=== PATIENT | female | born 1985 | race Caucasian/White ===

== ENCOUNTER 2016-07-29 01:13 | Outpatient (CLI) | payer OTHER | END 2016-07-29 02:00 | disposition home or self-care (01) | LOC: M LDO 01:13 | PROVIDERS: ATTEND Advanced Practice Midwife | DX: O47.1 False labor at or after 37 completed weeks of gestation (principal); Z3A.00 Weeks of gestation of pregnancy not specified ==

== ENCOUNTER 2016-08-05 02:11 | Inpatient (IN) | payer OTHER ==
[~2016-08-05] VITALS: Ht 175.3 cm; Wt 80.0 kg
[2016-08-05 02:18] VITALS: BP 111/73
[2016-08-05] MEDS ORDERED: PRENTAB9 PO (02:26)
[2016-08-05] MEDS ORDERED: AMPICILLIN SOD 2 GM in D5W MINI-BAG PLUS 100 ML IV STA (04:31)
[2016-08-05] MEDS ORDERED: LACTATED RINGER'S 1000 ML IV STA (04:31)
[2016-08-05] MEDS ORDERED: LR 1,000 ML IV SCH (04:31)
[2016-08-05 05:11] LABS: MEAN CORPUSCULAR HGB CONC 33.8 g/dl (32.0-36.5); MEAN CORPUSCULAR VOLUME 91.6 fl (80.0-96.0); RED CELL DISTRIBUTION WIDTH 14.8 % (11.5-14.5); WHITE BLOOD COUNT 7.9 K/mm3 (4.0-10.0)
--- NOTE | 2016-08-05 05:20 | HPEPDOC ---
Obstetrical History & Physical General Date of Admission Aug 05, 2016 at 04:42 History of Present Illness Sandra is a 31yo with SIUP at 40w6d presenting with regular painful ctx. No lof. No vb. Feels good movement. Chief Complaint: Contractions, term Information Provided By: Patient Care Care: Good Care Dating Final EDC: Jul 30, 2016 Final EDC by: LMP, 1st trimester (US) LMP: Oct 19, 2015 Antepartum Course Diagnos(e)s scleroderma stable on no meds- PIH labs wnl, Gestational thrombocytopenia (plt 120's) Height (inches): 69 Pre- weight (lbs.): 138 Admission Weight (lbs.): 179 Change in Weight (lbs.): 41 Past Medical History Past Obstetrical History #1: Past Obstetrical History: Multigravida Date of Delivery: Jan 04, 2010 Gestation: 41 Type of Delivery: Spontaneous Vaginal Del. Sex of Infant: Male Weight of (grams): 3800 Complications: No Past Obstetrical History #2: Past Obstetrical History: Multigravida Date of Delivery: Jun 06, 2012 Gestation: 41 Type of Delivery: Spontaneous Vaginal Del. 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 Centromere ab positive. SSA/SSB ab neg. No pulmonary, cardiac or renal involvement MFM consult , Baseline PIH labs wnl. Growth scans q4wk at 28wk for risk of IUGR. Pulmonology consult , normal PFTs, no evidence of pulmonary involvement Echo with no evidence of PAH and EF 60% Oct 2015 2)Migraines w/aura, treates with tylenol and caffeine. Surgical History: Eunice Teeth Family History Significant Family History: No pertinent family hx Social History Marital Status: Family situation: Spouse/partner home Psychosocial History: No pertinent psych hx * Smoker: non-smoker Alcohol: denies Drugs: denies Imunizations Tdap status: current Influenza Status: current Allergies Coded Allergies: Peanut (Verified Allergy, Unknown, 08/05/16) Medications Scheduled Multivitamins/ ( 27-0.8 mg) 1 Tab Tab 1 TAB PO DAILY Physical Examination Physical Examination GENERAL: Alert and oriented times three. BREAST: . ABDOMEN: Gravid and non-tender to touch. FETUS: Is vertex (VTX) by sterile vaginal examination (SVE) HEART RATE: Regular rate and rhythm. LUNGS: Clear to auscultation (CTA). EXTREMITIES: trace edema of BLE Laboratory Data Urine Culture: Other (GBS bacteruria) Pertinent Laboratoy Data Blood Type: O+ RBC Antibody Screen: Negative HIV: Negative Hepatitis B: Negative Hepatitis C: Unknown Rapid Plasma Reagin: Nonreactive Rubella: Immune Varicella: Immune Chlamydia/Gonorrhea: Negative Group B Streptococcus: Positive Cystic Fibrosis: Negative Glucose Tolerance Test: 133 Anatomy Ultrasound Ultrasound Date: Apr 29, 2016 Placenta Location: Anterior Normal Anatomy: Yes Placenta Previa: No Steroid Therapy Steroid Therapy: No Vaginal Examination Dilation: 5 cm Effacement: 80+% Station: -2 Cervical Consistency: Soft Cervical Position: Middle Presentation: Cephalic presentation Assessment Heart Rate (FHR): 120 Variability: Moderate Accelerations: Positive Decelerations: None Tocometer Contractions: Yes Frequency: every 3-7 min. Duration: greater than 60 seconds Strength: palpated as moderate Assessment/Plan Assessment Sandra is a 31yo with SIUP at 40w6d with active labor diagnosed by cervical change from 3/90/-2 to 5/90/-2. Cat I FHRT. GBS positive urine. Cephalic by SCE. PMhx significant for scleroderma with no pulmonary, cardiac or renal involvement and stable on no medications. Also migraines with aura. Gestational thrombocytopenia (plt 120's), will re-eval today. Patient does not desire epidural for labor. Plan Admit and orient. Counseled and consented for Diet: clear liquids Group B Streptococcus (GBS) positive, Amp 2/1 Labs and intravenous (IV) per unit protocol. Lactated Ringers (LR): Bolus 500 mL, then at 125 mL/hr. Anticipate normal spontaneous delivery () Dr. Anjelica Bishop MD TroyANJELICA Herrera MD Aug 05, 2016 05:20
[2016-08-05 06:25] VITALS: BP 119/80
[2016-08-05] MEDS ORDERED: AMPICILLIN SOD 1 GM in D5W MINI-BAG PLUS 50 ML IV SCH (09:00)
[2016-08-05] MEDS: DOCUSATE SODIUM 100 MG CAP PO SCH ×2 (09:00→21:00)
[2016-08-05] MEDS: PRENATAL VITAMIN TAB PO SCH (09:00)
--- NOTE | 2016-08-05 09:44 | IPNPDOC ---
Text Note Date of Service The patient was seen on 08/05/16 at 09:43. NOTE assumed care 0730, SBAR from Dr Bishop NST Cat1 Cx 8-9/100/0/well applied Wants an epidural now Plan for Epidural then AROM, RN to call once stable post-epidural. Sessions VSTomasz, I+O VSTomasz I+O Laboratory Tests 08/05/16 05:00 Red Blood Count 3.64 L, Mean Corpuscular Volume 91.6, Mean Corpuscular Hemoglobin 31.0, Mean Corpuscular Hemoglobin Concent 33.8, Red Cell Distribution Width 14.8 H Vital Signs Date Time Temp Pulse Resp B/P Pulse Ox O2 Delivery O2 Flow Rate FiO2 08/05/16 06:25 97.6 67 18 119/80 SESSIONS,AMADOU Calderon MD Aug 05, 2016 09:44
[2016-08-05] MEDS ORDERED: OXYTOCIN 30 UNITS IN 0.9% NaCl 500ML IV BAG (J2590) As Ordered ONE (10:10)
[2016-08-05] MEDS ORDERED: LIDOCAINE 1% MDV INJ 50 ML VIAL As Ordered ONE (10:42)
[2016-08-05] MEDS ORDERED: OXYTOCIN DRIP 30 UNITS in APPROPRIATE DILUENT 1 EA IV SCH (11:04)
[2016-08-05] MEDS ORDERED: RHOGAM 300 MCG (1500 IU) INJ (J2790) IM SCH (11:15)
[2016-08-05] MEDS ORDERED: LIDOCAINE 1% MDV INJ 50 ML VIAL INFIL ONE (11:15)
[2016-08-05] MEDS ORDERED: ACETAMINOPHEN TAB 650MG DOSE (2X325MG) PO PRN (11:15)
[2016-08-05] MEDS ORDERED: METOCLOPRAMIDE INJ 10MG/2ML VIAL (J2765) IV PRN (11:15)
[2016-08-05] MEDS ORDERED: DIBUCAINE 1% OINTMENT 30GM TOP PRN (11:15)
[2016-08-05] MEDS ORDERED: IBUPROFEN 800 MG TAB PO PRN (11:15)
[2016-08-05] MEDS ORDERED: MEASLES,MUMPS,RUBELLA VACCINE INJ (MMR-II) (90707) SC SCH (11:15)
--- NOTE | 2016-08-05 11:15 | DNPDOC ---
Delivery Note Delivery Note DATE OF DELIVERY: Aug 05, 2016 at 04:42 PREDELIVERY DIAGNOSIS: Labor POST DELIVERY DIAGNOSIS: Delivered. PROCEDURE: Spontaneous vaginal BANK RUNNER: , admitting physician Dr Bishop ANESTHESIA: none ESTIMATED BLOOD LOSS: 200 FINDINGS: 9 pound 5ounce male , Score 8/9, True umbilical cord knot DELIVERY SUMMARY: Admitted in active labor and progressed quickly with no augmentation or epidural to C/C and pushed involuntarily, no delay of the vtx or ant/post shoulders. MRAY. To abdomen with good tone and cry. Cord C/C by FOB. Cord blood. True knot noted, not tight. 1st degr perineal lac noted. placenta intact with slight traction and massage. Intact. Lac repaired with 3- [address]-1. Good cosmesis/hemostasis. Renata MOYER,AMADOU Calderon MD Aug 05, 2016 11:15
[2016-08-05 13:33] VITALS: BP 110/66
[2016-08-05 18:03] VITALS: BP 110/59
[2016-08-06 06:20] VITALS: BP 96/55
--- NOTE | 2016-08-06 07:55 | DS.PDOC ---
Discharge Summary General Date of Admission Aug 05, 2016 at 04:42 Date of Discharge [id number] Discharge Summary COMPLICATIONS/CHIEF COMPLAINT: Active labor at term ADMISSION DIAGNOSES: 1. Active labor DISCHARGE DIAGNOSES: 1. with a true knot in the umbilical cord HOSPITAL COURSE: Patient was admitted in labor and had an uncomplicated delivery other than a first degree perineal laceration, repaired successfully. She had an uncomplicated course thereafter. DISCHARGE MEDICATIONS: Motrin, Tylenol, Lanolin, Colace, Dibucaine PHYSICAL EXAMINATION ON DISCHARGE: see prog note from this AM VITAL SIGNS: Please see below. DISCHARGE CONDITION: stable DISPOSITION: to home ACTIVITY: Nothing in the vagina for 6-8 weeks. Regular diet. DISCHARGE PLAN AND INSTRUCTIONS: follow up at 6 week visit Sessions Vital Signs/I&Os Vital Signs Date Time Temp Pulse Resp B/P Pulse Ox O2 Delivery O2 Flow Rate FiO2 08/06/16 06:20 98.4 69 6 96/55 I&O- Last 24 Hours up to 6 AM 08/06/16 06:00 Output Total 250 ml Balance -250 ml Medications Scheduled Multivitamins/ ( 27-0.8 mg) 1 Tab Tab 1 TAB PO DAILY Allergies Coded Allergies: Peanut (Verified Allergy, Unknown, 08/05/16) SESSIONS,AMADOU Calderon MD Aug 06, 2016 07:55
--- NOTE | 2016-08-06 07:57 | IPNPDOC ---
Text Note Date of Service The patient was seen on 08/06/16 at 07:56. NOTE PPD1 prog note Pt states feeling well, minimal pain. VB slowing. Baby feeding OK. No CP/LP/ SOB. Voiding and ambulatory. VSSAF Fundus at U-2, firm LE no CCE a/p: Doing well. Discharge this AM, to boarding if baby not released. Sessions VS,Tomasz, I+O VSTomasz I+O Vital Signs Date Time Temp Pulse Resp B/P Pulse Ox O2 Delivery O2 Flow Rate FiO2 08/06/16 06:20 98.4 69 6 96/55 I&O- Last 24 Hours up to 6 AM 08/06/16 06:00 Output Total 250 ml Balance -250 ml SESSIONS,AMADOU Calderon MD Aug 06, 2016 07:57
--- NOTE | 2016-08-06 08:00 | IPN ---
DATE: 08/06/2016 This mother and requested circumcision of their male . After discussing risks and benefits of circumcision, the medical and nonmedical indications, the penile block, the aftercare and the risks, both expressed understanding of the risks, penile block and aftercare, signed and witnessed the consent form. Await clearance by the polysomnographic technologist.
[2016-08-06] MEDS ORDERED: NUPE1OIN2 TOP (08:37)
[2016-08-06] MEDS ORDERED: IBUP-1114 PO (08:37)
[2016-08-06] MEDS ORDERED: ACET50TA PO (08:37)
[2016-08-06] MEDS ORDERED: PRENTAB9 PO (08:37)
[2016-08-06] MEDS ORDERED: COLA100C PO (08:37)
[2016-08-06] MEDS: DOCUSATE SODIUM 100 MG CAP PO SCH (09:00)
[2016-08-06] MEDS: PRENATAL VITAMIN TAB PO SCH (09:00)
== END 2016-08-06 17:50 | disposition home or self-care (01) | DRG 775 ==
LOC: M LDO 02:11 → M LDI 04:42 → M OBS 13:32
PROVIDERS: ADMIT Obstetrics & Gynecology; ATTEND Obstetrics & Gynecology
PROC: 10E0XZZ Delivery of Products of Conception, External Approach (ICD-10-PCS; principal; 2016-08-05)
PROC: 10907ZC Drainage of Amniotic Fluid, Therapeutic from Products of Conception, Via Natural or Artificial Opening (ICD-10-PCS; 2016-08-05)
PROC: 0HQ9XZZ Repair Perineum Skin, External Approach (ICD-10-PCS; 2016-08-05)
DX: O48.0 Post-term pregnancy (principal); O99.12 Other diseases of the blood and blood-forming organs and certain disorders involving the immune mechanism complicating childbirth; O99.354 Diseases of the nervous system complicating childbirth; O99.824 Streptococcus B carrier state complicating childbirth; D69.59 Other secondary thrombocytopenia; M34.9 Systemic sclerosis, unspecified; Z3A.40 40 weeks gestation of pregnancy; G43.109 Migraine with aura, not intractable, without status migrainosus; O26.893 Other specified pregnancy related conditions, third trimester; O70.0 First degree perineal laceration during delivery; O69.2XX0 Labor and delivery complicated by other cord entanglement, with compression, not applicable or unspecified; Z37.0 Single live birth

== ENCOUNTER 2018-01-14 19:28 | Emergency (ER) | payer OTHER | END 2018-01-14 21:25 | disposition home or self-care (01) | LOC: M ED 19:28 | DX: N61.0 Mastitis without abscess (principal); Z91.010 Allergy to peanuts | CPT/HCPCS: 99283 ==